=== PATIENT | male | born 2000 | race Hispanic/Latino ===

== ENCOUNTER 2019-10-20 08:14 | Emergency (ER) | payer OTHER ==
[~2019-10-20 08:14] MED LIST: ACET-2247 PO; IBUP-2070 PO
[2019-10-20] MEDS ORDERED: CYCLOBENZAPRINE HCL 10 MG TABLET ONE (08:59)
[2019-10-20] MEDS ORDERED: KETOROLAC TROMETHAMINE 60 MG/2 ML VIAL ONE (08:59)
[2019-10-20] MEDS ORDERED: HYDROCODONE/ACETAMINOPHEN 10/325 MG TAB ONE (10:30)
== END 2019-10-20 11:30 | disposition home or self-care (01) ==
LOC: EDH 08:14
DX: S39.012A Strain of muscle, fascia and tendon of lower back, initial encounter (principal); X50.0XXA Overexertion from strenuous movement or load, initial encounter; Y93.89 Activity, other specified; Y92.89 Other specified places as the place of occurrence of the external cause; Y99.8 Other external cause status
CPT/HCPCS: 72100; 96372; 99283; J1885